=== PATIENT | female | born 1955 | race Caucasian/White ===

== ENCOUNTER 2024-01-03 14:45 | Emergency (ER) | payer OTHER ==
[~2024-01-03] VITALS: Ht 170.2 cm; Wt 68.0 kg
[2024-01-03] MEDS ORDERED: ACETAMINOPHEN ES 500 MG TABLET ONE (15:04)
[2024-01-03] MEDS ORDERED: ACETAMINOPHEN 325 MG TABLET ONE (15:06)
[2024-01-03] MEDS: ACETAMINOPHEN 325 MG TABLET PO ONE (15:10)
[2024-01-03] MEDS ORDERED: OXYC-128 PO (16:32)
[2024-01-03] MEDS ORDERED: IBUP-1953 PO (16:32)
[2024-01-03 17:36] VITALS: BP 123/75; TEMP 98.1; O2SAT 98
== END 2024-01-03 17:36 | disposition home or self-care (01) ==
LOC: ER 14:55
DX: S42.212A Unspecified displaced fracture of surgical neck of left humerus, initial encounter for closed fracture (principal); Z79.1 Long term (current) use of non-steroidal anti-inflammatories (NSAID); Z79.891 Long term (current) use of opiate analgesic; W01.0XXA Fall on same level from slipping, tripping and stumbling without subsequent striking against object, initial encounter; Y93.89 Activity, other specified; Y92.89 Other specified places as the place of occurrence of the external cause; Y99.8 Other external cause status
CPT/HCPCS: 73030-TC; 73060-TC